=== PATIENT | female | born 1980 | race Caucasian/White ===

== ENCOUNTER 2017-02-04 21:54 | Emergency (ER) | payer MEDICAID ==
[2017-02-05] MEDS: ACETAMINOPHEN 325 MG TAB PO (05:03)
[2017-02-05] MEDS: IBUPROFEN 600 MG TAB PO (05:03)
== END 2017-02-05 06:32 | disposition home or self-care (01) ==
LOC: FTE 21:54
DX: R51 Headache (principal); R50.9 Fever, unspecified; R05 Cough; R53.83 Other fatigue
CPT/HCPCS: 87400; 99283